=== PATIENT | female | born 1990 | race Caucasian/White ===

== ENCOUNTER 2018-11-15 10:19 | Inpatient (IN) | payer SELFPAY ==
[~2018-11-15] VITALS: Ht 175.3 cm; Wt 142.9 kg
[2018-11-15 11:45] LABS: BASOPHILS % 0.7 % (0.0-2.0); EOSINOPHILS % 2.9 % (0.0-5.0); HEMATOCRIT. 40.5 % (36.0-48.0); HEMOGLOBIN. 14.5 g/dL (12.0-16.0); LYMPHOCYTES % 24.2 % (20.0-50.0); MEAN CORPUSCULAR VOLUME 86.6 fL (81.0-99.0); MEAN PLATELET VOLUME 7.7 fl (7.4-10.4); MONOCYTES % 7.9 % (2.0-8.0); NEUTROPHILS % 64.3 % (40.0-76.0); PLATELET 227 x1000/uL (130-400); RED BLOOD CELL COUNT 4.68 mill/uL (4.2-5.4); RED CELL DISTRIBUTION WIDTH 13.7 % (11.6-14.6)
[2018-11-15 11:55] LABS: CHLORIDE 106 mEq/L (98-107); INR 1.1; PROTHROMBIN TIME 10.8 sec (9.6-11.0)
[2018-11-15] MEDS ORDERED: MORPHINE SULFATE 4 MG/ML CPJ (NOT FOR IM USE) IV ONE ×2 (12:30→13:30)
[2018-11-15 13:37] LABS: CLARITY URINE CLOUDY (CLEAR); COLOR URINE DARK YELLOW (YELLOW); KETONES URINE 3+ (NEGATIVE); LEUKOCYTE ESTERASE URINE TRACE (NEGATIVE); NITRITE URINE NEGATIVE (NEGATIVE); OCCULT BLOOD URINE NEGATIVE (NEGATIVE); PROTEIN URINE TRACE (NEGATIVE); SPECIFIC GRAVITY URINE 1.023 (1.005-1.030)
[2018-11-15] MEDS ORDERED: MORPHINE SULFATE 4 MG/ML CPJ (NOT FOR IM USE) IV STA (14:45)
[2018-11-15] MEDS ORDERED: SODIUM CHLORIDE 0.9% 1,000 ML IV ONE (14:45)
[2018-11-15] MEDS ORDERED: HYDROMORPHONE HCL/PF 2MG/ML CPJ IV PRN (19:15)
[2018-11-15] MEDS ORDERED: ONDANSETRON HCL 4MG/2ML INJ IV PRN (19:15)
[2018-11-15] MEDS ORDERED: DIPHENHYDRAMINE 50MG/ML VIAL IV PRN (19:15)
[2018-11-15] MEDS ORDERED: ACETAMINOPHEN 325MG TABLET PO PRN (19:15)
[2018-11-15] MEDS ORDERED: DEXT 5%/0.45% NACL KCL 20MEQ/L 1,000 ML IV SCH (20:30)
[2018-11-15 20:50] VITALS: BP 126/70
[2018-11-15] MEDS: FAMOTIDINE 20MG/2ML VIAL IV SCH (21:00)
[2018-11-15 21:51] VITALS: BP 126/70
[2018-11-15] MEDS ORDERED: LEVOFLOXACIN 500MG PREMIX 100 ML IV SCH (23:00)
[2018-11-15] MEDS ORDERED: POTASSIUM CHLORIDE INJ 40 MEQ in DEXT 5% WATER 500 ML IV NR (23:00)
[2018-11-15] MEDS ORDERED: MVI, ADULT NO.1 10 ML, FOLIC ACID 1 MG, THIAMINE HCL 100 MG in SODIUM CHLORIDE 0.9% 1,0... IV SCH ×4 (23:00)
[2018-11-16] VITALS: BP_SYST 112; BP_SYST 174; BP_DIAS 106; BP_DIAS 60
[2018-11-16] MEDS: HYDROMORPHONE HCL/PF 2MG/ML CPJ IV PRN ×2 (00:14→07:16)
[2018-11-16 04:00] VITALS: BP 103/63
[2018-11-16] MEDS ORDERED: MVI, ADULT NO.1 10 ML, FOLIC ACID 1 MG, THIAMINE HCL 100 MG in SODIUM CHLORIDE 0.9% 1,0... IV NR ×4 (05:00)
[2018-11-16 07:11] LABS: BASOPHILS % 0.4 % (0.0-2.0); EOSINOPHILS % 1.9 % (0.0-5.0); HEMATOCRIT. 36.8 % (36.0-48.0); HEMOGLOBIN. 13.1 g/dL (12.0-16.0); LYMPHOCYTES % 24.4 % (20.0-50.0); MEAN CORPUSCULAR HEMOGLOBIN 31.2 pg (28.0-32.0); MEAN CORPUSCULAR VOLUME 87.4 fL (81.0-99.0); MEAN PLATELET VOLUME 7.8 fl (7.4-10.4); NEUTROPHILS % 64.3 % (40.0-76.0); PLATELET 197 x1000/uL (130-400); RED BLOOD CELL COUNT 4.21 mill/uL (4.2-5.4); RED CELL DISTRIBUTION WIDTH 14.1 % (11.6-14.6)
[2018-11-16 07:26] LABS: CHLORIDE 107 mEq/L (98-107)
[2018-11-16 08:00] VITALS: BP 127/63
[2018-11-16] MEDS: FAMOTIDINE 20MG/2ML VIAL IV SCH ×2 (09:00→20:16)
[2018-11-16] MEDS ORDERED: MAGNESIUM 2 G PREMIX 50 ML IV NR (11:30)
[2018-11-16 11:57] VITALS: BP 119/74
[2018-11-16] MEDS ORDERED: POTASSIUM CHLORIDE INJ 40 MEQ in DEXT 5% WATER 500 ML IV NR (12:00)
[2018-11-16] MEDS: SODIUM CHLORIDE 0.9% 1,000 ML IV SCH (12:57)
[2018-11-16 14:48] LABS: UCG SCREEN NEGATIVE
[2018-11-16 15:27] LABS: *AMPHETAMINES SCREEN URINE NEGATIVE (NEGATIVE); *BARBITURATES SCREEN URINE NEGATIVE (NEGATIVE); *BENZODIAZEPINES SCREEN URINE NEGATIVE (NEGATIVE)
[2018-11-16 15:28] LABS: *COCAINE SCREEN URINE NEGATIVE (NEGATIVE); CANNABINOID URINE SCREEN NEGATIVE (NEGATIVE); METHADONE URINE SCREEN NEGATIVE (NEGATIVE); OPIATES URINE SCREEN NEGATIVE (NEGATIVE); PHENCYCLIDINE URINE SCREEN NEGATIVE (NEGATIVE)
[2018-11-16 16:00] VITALS: BP 125/70
[2018-11-16] MEDS ORDERED: POTASSIUM CHLORIDE 20MEQ TABLET SR PO NR (16:00)
[2018-11-16 20:00] VITALS: BP 125/60
[2018-11-16] MEDS ORDERED: LEVOFLOXACIN 500MG PREMIX 100 ML IV SCH (20:00)
[2018-11-17] VITALS: BP 118/67
[2018-11-17] MEDS: SODIUM CHLORIDE 0.9% 1,000 ML IV SCH ×2 (03:27→13:41)
[2018-11-17 04:00] VITALS: BP 122/53
[2018-11-17 05:53] LABS: BASOPHILS % 0.4 % (0.0-2.0); EOSINOPHILS % 5.2 % (0.0-5.0); HEMATOCRIT. 36.8 % (36.0-48.0); HEMOGLOBIN. 13.1 g/dL (12.0-16.0); MEAN CORPUSCULAR HEMOGLOBIN 31.4 pg (28.0-32.0); MEAN PLATELET VOLUME 7.9 fl (7.4-10.4); MONOCYTES % 10.5 % (2.0-8.0); NEUTROPHILS % 55.9 % (40.0-76.0); PLATELET 194 x1000/uL (130-400); RED BLOOD CELL COUNT 4.19 mill/uL (4.2-5.4); RED CELL DISTRIBUTION WIDTH 14.1 % (11.6-14.6)
[2018-11-17 07:36] LABS: CHLORIDE 108 mEq/L (98-107)
[2018-11-17 07:42] LABS: PHOSPHORUS 2.1 mg/dL (2.5-4.9)
[2018-11-17 08:00] VITALS: BP 141/64
[2018-11-17] MEDS: FAMOTIDINE 20MG/2ML VIAL IV SCH (09:00)
[2018-11-17] MEDS ORDERED: POTASSIUM CHLORIDE 20MEQ TABLET SR PO NR (10:55)
[2018-11-17 12:26] VITALS: BP 133/83
[2018-11-17] MEDS ORDERED: POTASSIUM PHOS,M-BASIC-D-BASIC 10 MMOL in DEXT 5% WATER 246.6667 ML IV NR (12:30)
[2018-11-17 13:42] VITALS: BP 133/83
== END 2018-11-17 15:38 | disposition home or self-care (01) ==
LOC: ER 10:19 → 6EST 12:37 → ENRESERV 20:14
PROVIDERS: ADMIT Internal Medicine; ATTEND Internal Medicine
DX: K80.20 Calculus of gallbladder without cholecystitis without obstruction (principal); K85.20 Alcohol induced acute pancreatitis without necrosis or infection; K76.0 Fatty (change of) liver, not elsewhere classified; E66.01 Morbid (severe) obesity due to excess calories; E28.2 Polycystic ovarian syndrome; E87.6 Hypokalemia; Z83.3 Family history of diabetes mellitus; Z87.891 Personal history of nicotine dependence; Z72.89 Other problems related to lifestyle; Z68.42 Body mass index [BMI] 45.0-49.9, adult
CPT/HCPCS: 36415; 74176; 76705; 78227; 80048; 80305; 81025; 83036; 83735; 84100; 96361; 96374; 96376; 99285; A9537; J1170; J1956; J2270; J2405; J3411; J3475; J3480; J3490; J7030; J7060

== ENCOUNTER 2020-04-30 08:07 | Emergency (ER) | payer MEDICAID ==
[~2020-04-30] VITALS: Ht 172.7 cm; Wt 118.0 kg
[2020-04-30] MEDS ORDERED: MORPHINE SULFATE 4 MG/ML CPJ (NOT FOR IM USE) IV STA (08:26)
[2020-04-30] MEDS ORDERED: ONDANSETRON HCL 4MG/2ML INJ IV STA (08:26)
[2020-04-30 08:51] LABS: CLARITY URINE CLOUDY (CLEAR); COLOR URINE YELLOW (YELLOW); KETONES URINE TRACE (NEGATIVE); LEUKOCYTE ESTERASE URINE 2+ (NEGATIVE); NITRITE URINE NEGATIVE (NEGATIVE); OCCULT BLOOD URINE NEGATIVE (NEGATIVE); PH URINE 6.5 (4.5-8.0); PROTEIN URINE 1+ (NEGATIVE); SPECIFIC GRAVITY URINE 1.028 (1.005-1.030)
[2020-04-30 09:23] LABS: BASOPHILS % 0.6 % (0.0-2.0); EOSINOPHILS % 2.9 % (0.0-5.0); HEMATOCRIT. 42.6 % (36.0-48.0); HEMOGLOBIN. 14.7 g/dL (12.0-16.0); LYMPHOCYTES % 28.6 % (20.0-50.0); MEAN CORPUSCULAR HEMOGLOBIN 30.4 pg (28.0-32.0); MEAN CORPUSCULAR VOLUME 87.8 fL (81.0-99.0); MEAN PLATELET VOLUME 7.7 fl (7.4-10.4); MONOCYTES % 6.8 % (2.0-8.0); NEUTROPHILS % 61.1 % (40.0-76.0); PLATELET 253 x1000/uL (130-400); RED BLOOD CELL COUNT 4.85 mill/uL (4.2-5.4); RED CELL DISTRIBUTION WIDTH 12.9 % (11.6-14.6)
[2020-04-30] MEDS ORDERED: NITROFURANTOIN 100MG M/M CAPSULE PO ONE (09:30)
[2020-04-30 09:31] LABS: CHLORIDE 109 mEq/L (98-107)
[2020-04-30 09:32] LABS: HCG SCREEN NEGATIVE
[2020-04-30] MEDS ORDERED: KETOROLAC 30MG/ML VIAL IV ONE (10:30)
[2020-04-30] MEDS ORDERED: TOPUD MT (11:19)
[2020-04-30] MEDS ORDERED: NITR100C MT (11:19)
[2020-04-30 12:13] LABS: PROTHROMBIN TIME 10.9 sec (9.6-11.0)
[2020-04-30 12:47] VITALS: BP 126/65
== END 2020-04-30 12:49 | disposition home or self-care (01) ==
LOC: ER 08:07
DX: N39.0 Urinary tract infection, site not specified (principal); R10.33 Periumbilical pain; E28.2 Polycystic ovarian syndrome; Z87.19 Personal history of other diseases of the digestive system
CPT/HCPCS: 36415; 74176; 80053; 81003; 81025; 83690; 84703; 85025; 85610; 87077; 87086; 93005; 96374; 96375; 99285; J1885; J2270; J2405

== ENCOUNTER 2024-10-04 08:18 | Emergency (ER) | payer MEDICAID ==
[~2024-10-04] VITALS: Ht 170.2 cm; Wt 105.0 kg
[~2024-10-04 08:18] MED LIST: NITR100C MT; TOPUD MT
[2024-10-04 08:24] VITALS: TEMP 36.7; O2SAT 95
[2024-10-04] MEDS ORDERED: METH-653 MT (08:54)
[2024-10-04] MEDS ORDERED: LIDO700A30 TP (08:54)
[2024-10-04] MEDS ORDERED: METHOCARBAMOL 500MG TABLET PO ONE (09:00)
[2024-10-04] MEDS ORDERED: KETOROLAC 30MG/ML VIAL IM ONE (09:00)
[2024-10-04] MEDS: METHOCARBAMOL 500MG TABLET PO NR (09:08)
[2024-10-04] MEDS: KETOROLAC 30MG/ML VIAL IM NR (09:08)
[2024-10-04 09:09] VITALS: BP 134/66; PULSE 73; RESP 16; O2SAT 95
== END 2024-10-04 09:14 | disposition home or self-care (01) ==
LOC: ER 08:18
DX: S33.5XXA Sprain of ligaments of lumbar spine, initial encounter (principal); X58.XXXA Exposure to other specified factors, initial encounter; Y93.89 Activity, other specified; Y92.89 Other specified places as the place of occurrence of the external cause; Y99.8 Other external cause status
CPT/HCPCS: 99283; 96372; J1885